=== PATIENT | female | born 1960 | race American Indian/Alaskan Native ===

== ENCOUNTER 2020-11-08 14:11 | Outpatient (CLI) | payer OTHER ==
--- NOTE | 2020-11-08 15:41 | Ultrasound Report ---
ULTRASOUND-GUIDED LEFT BREAST CYST ASPIRATION INDICATION: Painful left breast cyst COMPARISON: Left breast ultrasound 08/16/2019 CONSENT: Procedure was discussed in detail with the patient including possible risks and benefits. Jerome barragan is not on anticoagulant therapy and does not report pertinent allergies. PROCEDURE: Timeout was performed. Small simple cyst was localized sonographically in the 8:00 positio n, 7 cm from the nipple, measuring a maximal diameter today of only 8 mm compared to 2 cm previously. No suspicious features are noted. Area was prepped in the usual fashion. Local anesthesia was admini stered with 1% lidocaine under sonographic guidance. Under direct sonographic guidance a 20-gauge spi nal needle was introduced into the cyst which was fully evacuated with no remnant at the end of the p rocedure. Only a minimal amount of clear yellowish fluid was aspirated without suspicious features. T his fluid was discarded. Site was secured. Patient tolerated the procedure well and left the departme nt in good condition. IMPRESSION: Successful left breast benign cyst aspiration Signer Name: Johnny Peres MD Signed: 11/08/2020 3:36 PM Workstation Name: [id number]
== END 2020-11-08 14:12 | disposition home or self-care (01) ==
LOC: SPVWC 14:11
PROVIDERS: ATTEND Surgery
DX: N60.02 Solitary cyst of left breast (principal); N60.12 Diffuse cystic mastopathy of left breast
CPT/HCPCS: 76942

== ENCOUNTER 2021-05-15 11:08 | Outpatient (CLI) | payer OTHER ==
--- NOTE | 2021-05-15 13:39 | Mammography Report ---
DIGITAL SCREENING MAMMOGRAM WITH TOMOSYNTHESIS WITH CAD, 05/15/2021 CLINICAL INFORMATION / INDICATION: Routine Screening Mammography. TECHNIQUE: Digital bilateral 2D and 3D mammography with tomosynthesis was obtained in the craniocaud al and mediolateral oblique projections. Computer-Aided Detection (CAD) analysis was used for interp retation of this study. COMPARISON: Breast MRI from 09/19/2020, diagnostic left mammogram from 04/13/2020, diagnostic right rosalino mogram from 08/16/2019, screening mammogram from 08/02/2019 FINDINGS: Breast Density: The breasts are heterogeneously dense, which may obscure small masses. No dominant mass, suspicious calcifications, or architectural distortion in either breast. Breast reduction changes are again seen with similar bilateral benign-appearing calcifications. IMPRESSION: No mammographic evidence of malignancy. Follow up recommendation: Routine yearly BI-RADS Category 2: Benign. A "normal" or negative report should not discourage follow up or biopsy of a clinically significant f inding. A written summary of these findings will be mailed to the patient. The patient will be entered into a mammography reporting system which will generate a reminder letter for the patient's next appointmen t at the appropriate interval. The [employer] recommends yearly mammograms starting at age 40 and continuing as l spring as a woman is in good health. Breast MRI is recommended for women with an approximate 20-25% or greater lifetime risk of breast cancer, including women with a strong family history of breast or ova oneyda cancer or who have been treated for Hodgkin's disease. Signer Name: Enrique Germain MD Signed: 05/15/2021 1:34 PM Workstation Name: [id number]
== END 2021-05-15 11:09 | disposition home or self-care (01) ==
LOC: SPVWC 11:08
PROVIDERS: ATTEND Surgery
DX: Z12.31 Encounter for screening mammogram for malignant neoplasm of breast (principal)
CPT/HCPCS: 77063; 77067